=== PATIENT | female | born 1960 | race Caucasian/White ===

== ENCOUNTER 2019-12-11 05:50 | Inpatient (IN) ==
[~2019-12-11 05:50] MED LIST: Vancomycin 1,750 MG in NS 0.9% 500 ml BAG 500 ML IVPB SCH
[2019-12-11] MEDS ORDERED: Famotidine IV 10 MG/ML 2 ml VIAL (20 mg) IV ONE (06:00)
[2019-12-11] MEDS ORDERED: Dexamethasone IV 4 MG/ML VIAL 1 ml VIAL IV SLOW PU ONE (06:00)
[2019-12-11] MEDS ORDERED: Lactated Ringers 1000 ml BAG 1,000 ML IV SCH (06:00)
[2019-12-11] MEDS ORDERED: Buffered Lidocaine 1% SYRIN 1 ml INTRADERM ONE ×2 (06:00→06:28)
[2019-12-11] MEDS ORDERED: Famotidine IV 10 MG/ML 2 ml VIAL (20 mg) ONE (06:28)
[2019-12-11] MEDS ORDERED: Dexamethasone IV 4 MG/ML VIAL 1 ml VIAL ONE ×2 (06:28→06:55)
[2019-12-11] MEDS ORDERED: Propofol 10 mg/ml 100 ML BTL 100 ML ONE (06:51)
[2019-12-11] MEDS ORDERED: Propofol 10 MG/ML 20 ML BTL ONE (06:55)
[2019-12-11] MEDS ORDERED: Ondansetron 4 mg VIAL 2 MG/ML 2 ml VIAL ONE (06:55)
[2019-12-11] MEDS ORDERED: Lidocaine 2% PF 5 ML VIAL ONE ×2 (06:55→11:07)
[2019-12-11] MEDS ORDERED: Midazolam 5 mg/5 ml VIAL 1 mg/ml 5 ml VIAL (5 mg) ONE (06:56)
[2019-12-11] MEDS ORDERED: fentaNYL 250 mcg/5 ml 50 MCG/ML 5 ml VIAL (250 MCG) ONE (06:56)
[2019-12-11] MEDS ORDERED: Remifentanil 2 MG VIAL ONE ×3 (06:56→10:43)
[2019-12-11] MEDS ORDERED: Rocuronium 50 mg VIAL 10 mg/ml 5 ml VIAL (50 mg) ONE (06:57)
[2019-12-11] MEDS ORDERED: Succinylcholine 200 mg VIAL 20 mg/ml 10 ml VIAL (200 mg) ONE (06:57)
[2019-12-11] MEDS ORDERED: Ketamine HCL 50 mg/ml 10 ml VIAL (500 MG) ONE (07:00)
[2019-12-11] MEDS ORDERED: Artificial Tear OPHTH.OINT 3.5 GM ONE (07:10)
[2019-12-11] MEDS ORDERED: Bacitracin INJECTION 50,000 UNITS ONE ×2 (07:10→12:49)
[2019-12-11] MEDS ORDERED: Levalbuterol 0.63MG/3ML NEB UNIT OF USE INH ONE ×2 (07:14→07:15)
[2019-12-11] MEDS ORDERED: HYDROmorphone 1 MG/1 ML SYRINGE ONE ×2 (10:23→14:15)
[2019-12-11] MEDS ORDERED: Acetaminophen IV 1 GM/100ML 100 ML ONE (11:07)
[2019-12-11] MEDS ORDERED: Phenylephrine IV 10 MG/ML 1 ml VIAL ONE (13:02)
[2019-12-11] MEDS ORDERED: Ondansetron 4 mg VIAL 2 MG/ML 2 ml VIAL IV PRN ×2 (13:34→13:56)
[2019-12-11] MEDS ORDERED: Naloxone 0.4 mg VIAL 0.4 mg/ml 1 ml VIAL IV PRN (13:34)
[2019-12-11] MEDS ORDERED: DiMENhydriNATE IV 50 mg/ml 1 ml VIAL IV PUSH PRN (13:34)
[2019-12-11] MEDS ORDERED: fentaNYL 100 mcg/2 ml 50 MCG/ML VIAL IV PRN (13:34)
[2019-12-11] MEDS ORDERED: Magnesium Hydroxide LIQ 30 ML UDC PO PRN (13:56)
[2019-12-11] MEDS ORDERED: HYDROcodone/ACETAMIN 5/325 mg TAB ONE (14:15)
[2019-12-11] MEDS: HYDROmorphone 1 MG/1 ML SYRINGE IV PRN ×2 (14:16→14:23)
[2019-12-11] MEDS: HYDROcodone/ACETAMIN 5/325 mg TAB PO PRN ×3 (14:16→22:41)
[2019-12-11] MEDS ORDERED: fentaNYL 100 mcg/2 ml 50 MCG/ML VIAL ONE (14:20)
[2019-12-11] MEDS ORDERED: PTO: Albuterol HFA INHALER 8 gm MDI INH PRN (16:13)
[2019-12-11] MEDS: PTO: Fluticasone HFA 110 mcg(NF) MDI INH SCH (18:27)
[2019-12-12] MEDS: HYDROcodone/ACETAMIN 5/325 mg TAB PO PRN ×4 (05:06→18:56)
[2019-12-12] MEDS: PTO: Fluticasone HFA 110 mcg(NF) MDI INH SCH ×2 (07:50→18:57)
[2019-12-12] MEDS: Cholecalciferol (VIT D3) 1,000 unit TAB PO SCH (14:14)
[2019-12-13] MEDS: HYDROcodone/ACETAMIN 5/325 mg TAB PO PRN ×5 (00:38→14:35)
[2019-12-13] MEDS: PTO: Fluticasone HFA 110 mcg(NF) MDI INH SCH (07:47)
[2019-12-13 11:44] VITALS: BP 140/74
[2019-12-13] MEDS: Cholecalciferol (VIT D3) 1,000 unit TAB PO SCH (12:50)
== END 2019-12-13 15:13 | disposition home health service (06) | DRG 304 ==
LOC: AA 05:50 → SSU 14:48
PROVIDERS: ADMIT Neurological Surgery; ATTEND Neurological Surgery

== ENCOUNTER 2021-10-15 12:30 | Inpatient (IN) ==
[2021-10-15] MEDS ORDERED: NS 0.9% 1000 ml BAG 1,000 ML IV ONE ×2 (13:09→17:16)
[2021-10-15 13:57] LABS: ABS Basophils 0.1 10^3/ul (0-0.2); ABS Eosinophils 0.1 10^3/ul (0-0.6); ABS Lymphocytes 1.6 10^3/ul (1.0-4.8); ABS Monocytes 0.6 10^3/ul (0-0.8); ABS Neutrophils 11.2 10^3/ul (1.5-7.7); Eosinophil % 0.4 %; Hematocrit 39 % (35-47); Hemoglobin 13.4 g/dL (12.0-16.0); Mean Corpuscular HGB Conc 34 g/dL (31-36); Mean Corpuscular Hemoglobin 30 pg (27-31); Mean Corpuscular Volume 89 fL (80-97); Mean Platelet Volume 7.9 fL (7.4-10.4); Platelet Count 373 10^3/uL (150-450); Red Cell Distribution Width 15 % (10-15); White Blood Count 13.6 10^3/uL (3.5-10.8)
[2021-10-15 14:35] LABS: Albumin/Globulin Ratio 1.4 (1-3); Calcium 9.7 mg/dL (8.6-10.3); Globulin 2.8 g/dL (2-4); Potassium 3.6 mmol/L (3.5-5.0); Total Bilirubin 0.5 mg/dL (0.2-1.0); Total Protein 6.8 g/dL (6.4-8.9); eGFR CKD-EPI 75.1 (>60)
[2021-10-15] MEDS ORDERED: Iohexol 350 (CONTRAST) 500 ML MDV IV ONE (14:54)
[2021-10-15 16:13] LABS: Urine Appearance Cloudy; Urine Color Yellow
[2021-10-15 16:14] LABS: Urine Bilirubin Negative (Negative); Urine Glucose Negative (Negative); Urine Ketones 1+ (15mg/dL) (Negative); Urine Nitrite Positive (Negative); Urine Protein 1+ (30 mg/dL) (Negative); Urine Specific Gravity 1.015 (1.005-1.030); Urine Urobilinogen 0.2 (Negative) (Negative)
[2021-10-15 16:20] LABS: Urine Bacteria 1+ (Absent); Urine Red Blood Cell 3+(>10/hpf) (Absent); Urine Squamous Epithelial Cell Present (Absent); Urine White Blood Cell 3+(>20/hpf) (Absent)
[2021-10-15] MEDS ORDERED: Ciprofloxacin 400mg IVPREMIX 400 MG/200 ML BAG IVPB ONE (17:13)
[2021-10-15] MEDS ORDERED: metroNIDAZOLE IV 500 MG/100ML 500 MG/100 ML BAG IVPB ONE (17:14)
[2021-10-15] MEDS ORDERED: Ondansetron 4 mg VIAL 2 MG/ML 2 ml VIAL IV PRN (17:35)
[2021-10-15] MEDS ORDERED: HYDROmorphone 1 MG/1 ML SYRINGE IV SLOW PU PRN ×2 (17:35→17:45)
[2021-10-15] MEDS ORDERED: Lactated Ringers 1000 ml BAG 1,000 ML IV SCH (18:00)
[2021-10-15] MEDS ORDERED: metroNIDAZOLE IV 250 MG/50ML 50 ML IVPB SCH (19:00)
[2021-10-15] MEDS: Albuterol HFA INHALER 8 gm MDI INH SCH (20:18)
[2021-10-15] MEDS: Mometasone 220 MCG MDI INH SCH (20:19)
[2021-10-15] MEDS: Linezolid 600 MG IVPREMIX(*) 600 MG/300 ML BAG IVPB SCH (21:32)
[2021-10-15] MEDS: Ciprofloxacin 400mg IVPREMIX 400 MG/200 ML BAG IVPB SCH (23:18)
[2021-10-16] MEDS: metroNIDAZOLE IV 500 MG/100ML 100 ML IVPB SCH ×3 (01:25→23:16)
[2021-10-16 06:05] LABS: ABS Eosinophils 0.1 10^3/ul (0-0.6); ABS Lymphocytes 1.6 10^3/ul (1.0-4.8); ABS Monocytes 0.7 10^3/ul (0-0.8); ABS Neutrophils 8.2 10^3/ul (1.5-7.7); Hematocrit 35 % (35-47); Hemoglobin 11.5 g/dL (12.0-16.0); Mean Corpuscular HGB Conc 33 g/dL (31-36); Mean Corpuscular Hemoglobin 30 pg (27-31); Mean Corpuscular Volume 90 fL (80-97); Platelet Count 304 10^3/uL (150-450); Red Blood Count 3.85 10^6 /uL (3.70-4.87); Red Cell Distribution Width 15 % (10-15); White Blood Count 10.6 10^3/uL (3.5-10.8)
[2021-10-16 06:27] LABS: Albumin 3.5 g/dL (3.2-5.2); Albumin/Globulin Ratio 1.8 (1-3); C Reactive Protein 50.08 mg/L (<8.01); Calcium 8.9 mg/dL (8.6-10.3); Potassium 3.7 mmol/L (3.5-5.0); Total Bilirubin 0.5 mg/dL (0.2-1.0); Total Protein 5.5 g/dL (6.4-8.9); eGFR CKD-EPI 81.7 (>60)
[2021-10-16] MEDS: Triamterene/HCTZ 75/50 mg 1 TAB PO SCH (08:45)
[2021-10-16] MEDS: Linezolid 600 MG IVPREMIX(*) 600 MG/300 ML BAG IVPB SCH ×2 (08:45→20:45)
[2021-10-16] MEDS: Albuterol HFA INHALER 8 gm MDI INH SCH ×4 (09:48→19:56)
[2021-10-16] MEDS: Ciprofloxacin 400mg IVPREMIX 400 MG/200 ML BAG IVPB SCH ×2 (11:17→21:54)
[2021-10-16] MEDS: Enoxaparin 40 MG/0.4 ML SYR SUBCUT SCH (13:57)
[2021-10-16] MEDS: Mometasone 220 MCG MDI INH SCH (19:53)
[2021-10-17 04:57] LABS: ABS Basophils 0.1 10^3/ul (0-0.2); ABS Eosinophils 0.1 10^3/ul (0-0.6); ABS Lymphocytes 1.5 10^3/ul (1.0-4.8); ABS Monocytes 0.6 10^3/ul (0-0.8); ABS Neutrophils 6.9 10^3/ul (1.5-7.7); Eosinophil % 1.3 %; Hematocrit 33 % (35-47); Hemoglobin 11.1 g/dL (12.0-16.0); Lymphocyte % 15.9 %; Mean Corpuscular HGB Conc 34 g/dL (31-36); Mean Corpuscular Hemoglobin 30 pg (27-31); Mean Corpuscular Volume 89 fL (80-97); Mean Platelet Volume 7.8 fL (7.4-10.4); Platelet Count 277 10^3/uL (150-450); Red Blood Count 3.65 10^6 /uL (3.70-4.87); Red Cell Distribution Width 14 % (10-15); White Blood Count 9.1 10^3/uL (3.5-10.8)
[2021-10-17] MEDS: metroNIDAZOLE IV 500 MG/100ML 100 ML IVPB SCH ×3 (05:02→22:50)
[2021-10-17] MEDS: Albuterol HFA INHALER 8 gm MDI INH SCH (07:48)
[2021-10-17] MEDS ORDERED: Albuterol HFA INHALER 8 gm MDI INH PRN (07:54)
[2021-10-17] MEDS: Linezolid 600 MG IVPREMIX(*) 600 MG/300 ML BAG IVPB SCH ×2 (07:59→20:04)
[2021-10-17] MEDS: Ciprofloxacin 400mg IVPREMIX 400 MG/200 ML BAG IVPB SCH ×2 (09:10→21:39)
[2021-10-17] MEDS: Triamterene/HCTZ 75/50 mg 1 TAB PO SCH (09:11)
[2021-10-17] MEDS: Enoxaparin 40 MG/0.4 ML SYR SUBCUT SCH (13:01)
[2021-10-17] MEDS: Mometasone 220 MCG MDI INH SCH (19:05)
[2021-10-18] MEDS: metroNIDAZOLE IV 500 MG/100ML 100 ML IVPB SCH ×2 (06:11→13:02)
[2021-10-18] MEDS: Linezolid 600 MG IVPREMIX(*) 600 MG/300 ML BAG IVPB SCH (08:24)
[2021-10-18] MEDS: Triamterene/HCTZ 75/50 mg 1 TAB PO SCH (09:40)
[2021-10-18] MEDS: Ciprofloxacin 400mg IVPREMIX 400 MG/200 ML BAG IVPB SCH (09:40)
[2021-10-18 12:01] VITALS: BP 124/67
[2021-10-18] MEDS: Enoxaparin 40 MG/0.4 ML SYR SUBCUT SCH (13:02)
[2021-10-18] MEDS: Mometasone 220 MCG MDI INH SCH (19:15)
== END 2021-10-18 14:40 | disposition home or self-care (01) | DRG 720 ==
LOC: ED 12:30 → SSU 19:14
PROVIDERS: ADMIT Surgery Surgical Critical Care; ATTEND Surgery

== ENCOUNTER 2022-03-16 10:05 | Observation (INO) ==
[2022-03-16] MEDS ORDERED: Lactated Ringers 1000 ml BAG 1,000 ML IV ONE (11:17)
[2022-03-16] MEDS ORDERED: Morphine 4 MG/ML VIAL (1 ml) IV ONE ×2 (11:17→15:35)
[2022-03-16 12:11] LABS: Hematocrit 37 % (35-47); Hemoglobin 12.5 g/dL (12.0-16.0); Mean Corpuscular HGB Conc 34 g/dL (31-36); Mean Corpuscular Hemoglobin 28 pg (27-31); Mean Corpuscular Volume 82 fL (80-97); Platelet Count 583 10^3/uL (150-450); Red Blood Count 4.53 10^6 /uL (3.70-4.87); Red Cell Distribution Width 14 % (10-15); White Blood Count 30.8 10^3/uL (3.5-10.8)
[2022-03-16 12:22] LABS: Urine Appearance Cloudy; Urine Bilirubin Negative (Negative); Urine Blood Negative (Negative); Urine Color Yellow; Urine Glucose Negative (Negative); Urine Ketones Negative (Negative); Urine Nitrite Negative (Negative); Urine Protein Negative (Negative); Urine Specific Gravity 1.013 (1.002-1.030); Urine Urobilinogen Negative (Negative)
[2022-03-16] MEDS ORDERED: Piperacillin/Tazobac ADVAN 3.375 GM in NS 0.9% 100 ml BAG 100 ML IV ONE ×2 (12:31→20:00)
[2022-03-16 12:36] LABS: Urine Bacteria 1+ (Absent); Urine Red Blood Cell Trace(0-2/hpf) (Absent); Urine Squamous Epithelial Cell Present (Absent); Urine White Blood Cell 3+(>20/hpf) (Absent)
[2022-03-16 12:53] LABS: ABS Basophils 0.1 10^3/ul (0-0.2); ABS Eosinophils 0.1 10^3/ul (0-0.6); ABS Lymphocytes 1.1 10^3/ul (1.0-4.8); ABS Monocytes 1.3 10^3/ul (0-0.8); ABS Neutrophils 28.2 10^3/ul (1.5-7.7); Eosinophil % 0.2 %; Lymphocyte % 3.4 %
[2022-03-16 12:55] LABS: Albumin 3.6 g/dL (3.2-5.2); Albumin/Globulin Ratio 1.3 (1-3); C Reactive Protein 166.55 mg/L (<8.01); Calcium 9.4 mg/dL (8.6-10.3); Globulin 2.8 g/dL (2-4); Total Bilirubin 0.8 mg/dL (0.2-1.0); Total Protein 6.4 g/dL (6.4-8.9); eGFR CKD-EPI 66.5 (>60)
[2022-03-16] MEDS ORDERED: Iohexol 350 (CONTRAST) 500 ML MDV IV ONE (13:01)
[2022-03-16] MEDS ORDERED: Propofol 0 MG/0 ML BTL ONE (17:31)
[2022-03-16] MEDS ORDERED: Lidocaine 2% PF 5 ML VIAL ONE (17:31)
[2022-03-16] MEDS ORDERED: Midazolam 2 mg/2 ml VIAL 1 mg/ml 2 ml VIAL (2 mg) ONE (17:32)
[2022-03-16] MEDS ORDERED: fentaNYL 250 mcg/5 ml 50 MCG/ML 5 ml VIAL (250 MCG) ONE (17:32)
[2022-03-16] MEDS ORDERED: Lidocaine 1% VIAL 10 MG/ML VIAL 30 ML ONE (17:33)
[2022-03-16] MEDS ORDERED: Phenylephrine IV 10 MG/ML 1 ml VIAL ONE (17:43)
[2022-03-16] MEDS ORDERED: Zosyn per Pharmacy NOTE FOLLOW UP SCH ×2 (18:00→19:00)
[2022-03-16] MEDS ORDERED: Ondansetron 4 mg VIAL 2 MG/ML 2 ml VIAL ONE (18:33)
[2022-03-16] MEDS ORDERED: Dexamethasone IV 4 MG/ML VIAL 1 ml VIAL ONE (18:33)
[2022-03-16] MEDS ORDERED: Albuterol HFA INHALER 8 gm MDI INH SCH ×2 (21:00)
[2022-03-16] MEDS ORDERED: Albuterol HFA INHALER 8 gm MDI INH PRN (21:13)
[2022-03-16] MEDS: Mometasone/Formoter 200/5 MDI INH SCH (21:36)
[2022-03-16] MEDS ORDERED: Fluticas/Salmet 115/21 HFA(NF) MDI INH SCH (22:00)
[2022-03-17] MEDS: ZOSYN 3.375 GM Q8H per EXTENDED INFUSION IV SCH ×2 (01:19→09:04)
[2022-03-17 06:23] LABS: ABS Lymphocytes 0.9 10^3/ul (1.0-4.8); ABS Monocytes 0.7 10^3/ul (0-0.8); ABS Neutrophils 18.2 10^3/ul (1.5-7.7); Eosinophil % 0.1 %; Hematocrit 34 % (35-47); Hemoglobin 11.7 g/dL (12.0-16.0); Lymphocyte % 4.6 %; Mean Corpuscular HGB Conc 35 g/dL (31-36); Mean Corpuscular Hemoglobin 29 pg (27-31); Mean Corpuscular Volume 84 fL (80-97); Mean Platelet Volume 7.1 fL (7.4-10.4); Platelet Count 466 10^3/uL (150-450); Red Blood Count 4.03 10^6 /uL (3.70-4.87); Red Cell Distribution Width 14 % (10-15); White Blood Count 19.8 10^3/uL (3.5-10.8)
[2022-03-17 06:39] LABS: Albumin 3.3 g/dL (3.2-5.2); Albumin/Globulin Ratio 1.3 (1-3); Globulin 2.5 g/dL (2-4); Magnesium 2.3 mg/dL (1.9-2.7); Potassium 4.1 mmol/L (3.5-5.0); Total Bilirubin 0.5 mg/dL (0.2-1.0); Total Protein 5.8 g/dL (6.4-8.9)
[2022-03-17] MEDS: Mometasone/Formoter 200/5 MDI INH SCH (08:40)
[2022-03-17] MEDS ORDERED: Triamterene/HCTZ 75/50 mg 1 TAB PO SCH ×2 (09:00)
[2022-03-17] MEDS ORDERED: HYDROCHLOROTHIAZIDE PO SCH (09:00)
[2022-03-17] MEDS ORDERED: TRIAMTERENE PO SCH (09:00)
[2022-03-17] MEDS ORDERED: dilTIAZem ER 120 mg CAP (NF) PO SCH ×2 (09:00)
[2022-03-17 11:45] VITALS: BP 107/66
== END 2022-03-17 14:40 | disposition home or self-care (01) ==
LOC: ED 10:05 → SSU 10:05 → ED 18:10 → SSU 18:10 → SUATTDRO 19:29
PROVIDERS: ADMIT Student in an Organized Health Care Education/Training Program; ATTEND Internal Medicine
PROC: O.GEI&D (2022-03-16 18:00)